=== PATIENT | female | born 2000 | race Caucasian/White ===

== ENCOUNTER 2021-06-27 21:09 | Emergency (ER) | payer OTHER ==
[~2021-06-27] VITALS: Ht 165.1 cm; Wt 101.8 kg
[2021-06-27] MEDS ORDERED: PREN1CHW PO (21:28)
[2021-06-27 22:22] LABS: URINE PREG TEST POSITIVE (NEGATIVE)
[2021-06-27 22:27] LABS: AMORPHOUS SEDIMENT SMALL (NEGATIVE); APPEARANCE, URINE CLOUDY (CLEAR); BACTERIA, URINE AUTO 1+ (NEGATIVE); BILIRUBIN, URINE AUTO NEGATIVE (NEGATIVE); BLOOD, URINE BLOOD 3+ (NEGATIVE); COLOR, URINE YELLOW (YELLOW); GLUCOSE, URINE (UA) AUTO NEGATIVE (NEGATIVE); KETONE, URINE AUTO NEGATIVE (NEGATIVE); LEUKOCYTE ESTERASE, URINE AUTO 2+ (NEGATIVE); MUCUS, URINE SMALL (NEGATIVE); NITRITE, URINE AUTO NEGATIVE (NEGATIVE); PROTEIN, URINE AUTO NEGATIVE (NEGATIVE); RBC, URINE AUTO 62 /HPF (0-3); SPECIFIC GRAVITY URINE AUTO 1.009 (1.002-1.035); SQUAMOUS EPITHELIAL CELL UR AU 10 /HPF (0-6); UROBILINOGEN, URINE AUTO 0.2 mg/dL (0.0-2.0); WBC, URINE AUTO 18 /HPF (0-3)
[2021-06-27 22:53] LABS: HEMATOCRIT 37.9 % (36.0-47.0); HEMOGLOBIN 12.7 g/dl (12.0-15.5); MEAN CORPUSCULAR HEMOGLOBIN 28.3 pg (27.0-33.0); MEAN CORPUSCULAR HGB CONC 33.5 g/dl (32.0-36.5); MEAN CORPUSCULAR VOLUME 84.4 fl (80.0-96.0); PLATELET COUNT, AUTOMATED 236 10^3/uL (150-450); RED BLOOD COUNT 4.49 10^6/uL (4.00-5.40); WHITE BLOOD COUNT 12.9 10^3/uL (4.0-10.0)
[2021-06-27 23:41] LABS: BLOOD UREA NITROGEN 7 MG/DL (7-18); CARBON DIOXIDE LEVEL 23 MEQ/L (21-32); CHLORIDE LEVEL 108 MEQ/L (98-107); CREATININE FOR GFR 0.59 MG/DL (0.55-1.30); GLOMERULAR FILTRATION RATE > 60.0 (>60); GLUCOSE, FASTING 96 MG/DL (70-100); HCG, SERUM QUANTITATIVE 58276 MIU/ML; SODIUM LEVEL 138 MEQ/L (136-145)
[2021-06-28 06:35] VITALS: BP 115/68
== END 2021-06-28 06:38 | disposition home or self-care (01) ==
LOC: M ED 21:09
DX: O26.851 Spotting complicating pregnancy, first trimester (principal); N93.9 Abnormal uterine and vaginal bleeding, unspecified; Z3A.01 Less than 8 weeks gestation of pregnancy; Z79.899 Other long term (current) drug therapy

== ENCOUNTER → 2021-07-06 | Outpatient (CLI) | payer OTHER ==
[~2021-07-06] MED LIST: PREN1CHW PO
== END ==
LOC: M LAB 12:23
PROVIDERS: ATTEND Obstetrics & Gynecology
DX: O20.9 Hemorrhage in early pregnancy, unspecified (principal)

== ENCOUNTER → 2021-09-02 | Outpatient (CLI) | payer OTHER ==
[2021-09-02 13:31] LABS: BASO % 0.3 % (0.0-1.0); EOS # 0.2 10^3/uL (0.0-0.5); EOS % 1.7 % (0.0-3.0); HEMATOCRIT 40.4 % (36.0-47.0); HEMOGLOBIN 12.9 g/dl (12.0-15.5); LYMPH # 1.8 10^3/uL (1.5-5.0); LYMPH % 16.1 % (24.0-44.0); MEAN CORPUSCULAR HEMOGLOBIN 27.2 pg (27.0-33.0); MEAN CORPUSCULAR HGB CONC 31.9 g/dl (32.0-36.5); MEAN CORPUSCULAR VOLUME 85.2 fl (80.0-96.0); MONO # 0.7 10^3/uL (0.0-0.8); MONO % 6.4 % (2.0-8.0); NEUTROPHILS # 8.5 10^3/uL (1.5-8.5); NEUTROPHILS % 75.1 % (36.0-66.0); PLATELET COUNT, AUTOMATED 195 10^3/uL (150-450); RED BLOOD COUNT 4.74 10^6/uL (4.00-5.40); WHITE BLOOD COUNT 11.4 10^3/uL (4.0-10.0)
[2021-09-02 14:49] LABS: HEPATITIS C VIRUS ABY INDEX 0.1 INDEX (<0.8); HIV 1&2 SCREEN CENTAUR NEGATIVE (NEGATIVE)
[2021-09-02 15:03] LABS: GC DNA AMPLIFICATION NEGATIVE (NEGATIVE)
== END ==
LOC: M PLALAB 10:32
PROVIDERS: ATTEND Advanced Practice Midwife
DX: O99.211 Obesity complicating pregnancy, first trimester (principal)

== ENCOUNTER → 2021-09-16 | Outpatient (REF) ==
[2021-09-16 12:16] LABS: RSV AMPLIFICATION NEGATIVE (NEGATIVE)
== END ==
LOC: M EMP 09:22
PROVIDERS: ATTEND Family Medicine
DX: Z20.822 Contact with and (suspected) exposure to COVID-19 (principal)

== ENCOUNTER → 2021-09-30 | Outpatient (CLI) | payer OTHER | LOC: M WHC 11:24 | PROVIDERS: ATTEND Advanced Practice Midwife | DX: O99.212 Obesity complicating pregnancy, second trimester (principal); Z36.2 Encounter for other antenatal screening follow-up; Z3A.21 21 weeks gestation of pregnancy ==

== ENCOUNTER 2021-10-15 16:11 | Emergency (ER) | payer OTHER ==
[~2021-10-15] VITALS: Ht 165.1 cm; Wt 103.4 kg
[2021-10-15 16:14] VITALS: BP 116/70
== END 2021-10-15 18:36 | disposition left against medical advice (07) ==
LOC: M ED 16:11
DX: Z53.21 Procedure and treatment not carried out due to patient leaving prior to being seen by health care provider (principal)

== ENCOUNTER → 2021-10-18 | Outpatient (CLI) | payer OTHER | LOC: M WHC 13:59 | PROVIDERS: ATTEND Specialist | DX: Z36.2 Encounter for other antenatal screening follow-up (principal); Z3A.23 23 weeks gestation of pregnancy ==

== ENCOUNTER → 2021-11-02 | Outpatient (CLI) | payer OTHER ==
[2021-11-02 13:56] LABS: HEMATOCRIT 35.1 % (36.0-47.0); HEMOGLOBIN 11.3 g/dl (12.0-15.5); MEAN CORPUSCULAR HEMOGLOBIN 28.3 pg (27.0-33.0); MEAN CORPUSCULAR HGB CONC 32.2 g/dl (32.0-36.5); MEAN CORPUSCULAR VOLUME 87.8 fl (80.0-96.0); PLATELET COUNT, AUTOMATED 170 10^3/uL (150-450); WHITE BLOOD COUNT 11.5 10^3/uL (4.0-10.0)
[2021-11-02 15:47] LABS: GC DNA AMPLIFICATION NEGATIVE (NEGATIVE)
== END ==
LOC: M PLALAB 09:05
PROVIDERS: ATTEND Specialist
DX: Z34.82 Encounter for supervision of other normal pregnancy, second trimester (principal); Z3A.00 Weeks of gestation of pregnancy not specified

== ENCOUNTER → 2021-11-15 | Outpatient (REF) | LOC: M LABSMTC 09:09 | PROVIDERS: ATTEND Family Medicine | DX: Z20.822 Contact with and (suspected) exposure to COVID-19 (principal); Z11.52 Encounter for screening for COVID-19 ==

== ENCOUNTER 2022-02-03 16:08 | Outpatient (CLI) | payer OTHER ==
[~2022-02-03] VITALS: Ht 165.1 cm; Wt 114.4 kg
[2022-02-03 16:23] VITALS: BP 121/71
[2022-02-03] MEDS ORDERED: PRENTAB9 PO (16:28)
== END 2022-02-03 17:20 | disposition home or self-care (01) ==
LOC: M LDO 16:08
PROVIDERS: ATTEND Registered Nurse
DX: O47.1 False labor at or after 37 completed weeks of gestation (principal); Z3A.38 38 weeks gestation of pregnancy
CPT/HCPCS: 59025; 76815; G0378; G0463

== ENCOUNTER 2022-02-05 23:04 | Outpatient (CLI) | payer OTHER ==
[~2022-02-05] VITALS: Ht 165.1 cm; Wt 114.6 kg
[~2022-02-05 23:04] MED LIST changes: +PRENTAB9 PO
[2022-02-05 23:24] VITALS: BP 140/86
[2022-02-05] MEDS ORDERED: HOME MED LIST COMPLETE! XX SCH (23:25)
[2022-02-05 23:38] VITALS: BP 120/71
== END 2022-02-06 00:01 | disposition home or self-care (01) ==
LOC: M LDO 23:04
PROVIDERS: ATTEND Obstetrics & Gynecology
DX: O47.1 False labor at or after 37 completed weeks of gestation (principal); Z3A.38 38 weeks gestation of pregnancy
CPT/HCPCS: 59025; G0378; G0463

== ENCOUNTER 2022-02-06 07:32 | Outpatient (CLI) | payer OTHER ==
[~2022-02-06] VITALS: Ht 165.1 cm; Wt 114.0 kg
[2022-02-06 07:45] VITALS: BP 121/81
[2022-02-06] MEDS ORDERED: HOME MED LIST COMPLETE! XX SCH (07:45)
== END 2022-02-06 09:34 | disposition home or self-care (01) ==
LOC: M LDO 07:32
PROVIDERS: ATTEND Registered Nurse
DX: O47.1 False labor at or after 37 completed weeks of gestation (principal); Z3A.38 38 weeks gestation of pregnancy
CPT/HCPCS: 59025; G0463

== ENCOUNTER 2022-02-06 20:22 | Inpatient (IN) | payer OTHER ==
[2022-02-06] VITALS (11 sets, daily range): BP systolic 118–148; BP diastolic 57–95
[~2022-02-06] VITALS: Ht 165.1 cm; Wt 113.4 kg
[2022-02-06] MEDS ORDERED: LR 1,000 ML IV SCH ×2 (21:05→21:25)
[2022-02-06] MEDS ORDERED: LR 1,000 ML IV ONE (21:05)
[2022-02-06] MEDS ORDERED: HOME MED LIST COMPLETE! XX SCH (21:20)
[2022-02-06] MEDS ORDERED: LACTATED RINGER'S 1000 ML IV STA (21:23)
[2022-02-06] MEDS ORDERED: TRANEXAMIC ACID INJection 1,000 MG in NS 100 ML IV PRN (21:25)
[2022-02-06] MEDS ORDERED: LIDOCAINE 1% MDV 20ML VIAL INFIL PRN (21:25)
[2022-02-06] MEDS ORDERED: OXYTOCIN INJ 10UNITS/ML 1ML VIAL IM PRN (21:25)
[2022-02-06] MEDS ORDERED: OXYTOCIN DRIP 30 UNITS in IV 1 EA IV PRN ×6 (21:25)
[2022-02-06] MEDS ORDERED: CARBOPROST TROMETHAMINE 250 MCG/ML AMP IM PRN (21:25)
[2022-02-06] MEDS ORDERED: METHYLERGONOVINE MALEATE 0.2 MG/ML VIAL (J2210) IM PRN (21:25)
[2022-02-06 21:27] LABS: HEMATOCRIT 34.7 % (36.0-47.0); MEAN CORPUSCULAR HEMOGLOBIN 25.9 pg (27.0-33.0); MEAN CORPUSCULAR HGB CONC 31.7 g/dl (32.0-36.5); MEAN CORPUSCULAR VOLUME 81.8 fl (80.0-96.0); PLATELET COUNT, AUTOMATED 232 10^3/uL (150-450); RED BLOOD COUNT 4.24 10^6/uL (4.00-5.40); WHITE BLOOD COUNT 16.1 10^3/uL (4.0-10.0)
[2022-02-06] MEDS ORDERED: diphenhydrAMINE 50MG/ML VIAL IV PRN (21:40)
[2022-02-06] MEDS ORDERED: FENTANYL/ROPIVACAINE/NACL BAG 100 ML EPIDURAL SCH (21:40)
[2022-02-06] MEDS ORDERED: EPIDURAL/PCA KEYS XX PRN (21:40)
[2022-02-06] MEDS ORDERED: NALOXONE INJ 0.4MG/1ML VIAL IV PRN (21:40)
[2022-02-06] MEDS ORDERED: LR 500 ML IV PRN (21:40)
[2022-02-06] MEDS ORDERED: ePHEDrine SULFATE 25 MG/5 ML(5MG/ML) SYRINGE IVP PRN (21:40)
[2022-02-06] MEDS ORDERED: ONDANSETRON 4MG 2ML VIAL IV PRN (21:40)
[2022-02-06] MEDS ORDERED: OXYTOCIN 30 UNITS IN 0.9% NaCl 500ML IV BAG (J2590) As Ordered ONE (22:50)
[2022-02-07] VITALS (7 sets, daily range): BP systolic 107–135; BP diastolic 62–92
[2022-02-07] MEDS ORDERED: IBUPROFEN 600MG TAB PO PRN (00:20)
[2022-02-07] MEDS ORDERED: ACETAMINOPHEN TAB 650MG DOSE (2X325MG) PO PRN (00:20)
[2022-02-07] MEDS ORDERED: DOCUSATE SODIUM 100MG CAPSULE PO PRN (00:20)
[2022-02-07] MEDS ORDERED: DIBUCAINE 1% OINTMENT 30GM TOP PRN (00:20)
[2022-02-07] MEDS ORDERED: ACETAMINOPHEN 500 MG TAB PO PRN (00:20)
[2022-02-07] MEDS ORDERED: METHYLERGONOVINE MALEATE 0.2 MG TAB PO PRN (00:20)
[2022-02-07] MEDS ORDERED: RHOGAM 300 MCG (1500 IU) INJ (J2790) IM SCH (00:20)
[2022-02-07] MEDS ORDERED: OXYTOCIN DRIP 30 UNITS in IV 1 EA IV SCH ×4 (00:20)
[2022-02-07] MEDS ORDERED: ANUSOL HC CREAM 30GM TOP PRN (00:20)
[2022-02-07] MEDS ORDERED: IBUPROFEN 800 MG TAB PO PRN (00:20)
[2022-02-07] MEDS: PRENATAL VITAMINS CHEWABLE TABLET PO SCH (07:47)
[2022-02-08 06:00] VITALS: BP 116/73
[2022-02-08] MEDS: PRENATAL VITAMINS CHEWABLE TABLET PO SCH (07:57)
[2022-02-08] MEDS ORDERED: COLA100C5 PO (09:00)
[2022-02-08] MEDS ORDERED: IBUP-1022 PO (09:00)
[2022-02-08] MEDS ORDERED: ACET1TAB55 PO (09:00)
[2022-02-08] MEDS ORDERED: PRENCHW PO (09:00)
[2022-02-09] MEDS ORDERED: MEASLES,MUMPS,RUBELLA VACCINE INJ (MMR-II) (90707) SC.IMMUN ONE (09:00)
== END 2022-02-08 11:54 | disposition home or self-care (01) | DRG 805 ==
LOC: M LDO 20:22 → M LDI 21:37 → M OBS 02-07 02:15
PROVIDERS: ADMIT Obstetrics & Gynecology; ATTEND Obstetrics & Gynecology
PROC: 10E0XZZ Delivery of Products of Conception, External Approach (ICD-10-PCS; principal; 2022-02-06)
PROC: 0KQM0ZZ Repair Perineum Muscle, Open Approach (ICD-10-PCS; 2022-02-06)
DX: O98.52 Other viral diseases complicating childbirth (principal); Z37.0 Single live birth; U07.1 COVID-19; O71.4 Obstetric high vaginal laceration alone; O69.81X0 Labor and delivery complicated by cord around neck, without compression, not applicable or unspecified; O69.82X0 Labor and delivery complicated by other cord entanglement, without compression, not applicable or unspecified; O62.2 Other uterine inertia; Z3A.38 38 weeks gestation of pregnancy

== ENCOUNTER 2023-01-02 15:05 | Outpatient (CLI) | payer OTHER ==
[~2023-01-02] VITALS: Ht 165.1 cm; Wt 101.9 kg
[~2023-01-02 15:05] MED LIST changes: +ACET1TAB55 PO; +COLA100C5 PO; +IBUP-1022 PO; +PRENCHW PO
[2023-01-02 15:22] VITALS: BP 124/80; O2SAT 98
[2023-01-02] MEDS ORDERED: FLUCONAZOLE 50MG TABLET PO ONE (15:55)
== END 2023-01-02 16:16 | disposition home or self-care (01) ==
LOC: M LDO 15:05
PROVIDERS: ATTEND Obstetrics & Gynecology
DX: O23.593 Infection of other part of genital tract in pregnancy, third trimester (principal); Z3A.35 35 weeks gestation of pregnancy
CPT/HCPCS: 59025; G0463

== ENCOUNTER 2023-01-09 23:12 | Outpatient (CLI) | payer OTHER ==
[~2023-01-09] VITALS: Ht 165.1 cm; Wt 102.5 kg
[2023-01-09 23:37] VITALS: BP 117/69
== END 2023-01-10 00:58 | disposition home or self-care (01) ==
LOC: M LDO 23:12
PROVIDERS: ATTEND Obstetrics & Gynecology
DX: O26.893 Other specified pregnancy related conditions, third trimester (principal); R25.2 Cramp and spasm; O47.03 False labor before 37 completed weeks of gestation, third trimester; Z3A.36 36 weeks gestation of pregnancy
CPT/HCPCS: 59025; G0463